=== PATIENT | male | born 1945 | race Caucasian/White ===

== ENCOUNTER → 2023-10-09 06:49 | Outpatient (REF) | payer OTHER, SELFPAY ==
[2023-10-09] MEDS: LEXISCAN 0.400000000000000022 MG IV (09:26)
== END ==
LOC: RCS 06:49
PROVIDERS: ATTENDING PHYSICIAN Internal Medicine Cardiovascular Disease; FAMILY PHYSICIAN Internal Medicine
DX: Z01.810 Encounter for preprocedural cardiovascular examination (principal)
CPT/HCPCS: 78452; 93017; A9500; J2785

== ENCOUNTER 2023-10-23 10:31 | Inpatient (IN) | payer OTHER, SELFPAY ==
--- NOTE | 2023-09-17 10:19 | CM ---
Patient is scheduled for an elective L TKR on 10/23/23. Spoke with patient prior to surgery via telephone. Introduced role of Orthopedic Navigator. Patient reports that he lives with his in a one story home. There is a ramp and one step to enter. He
currently functions independently and uses a cane. He also has a rolling walker, raised toilet seat and shower seat. He has never had VN services. PCP is Dr. Ron Dunlap.
Discussed orthopedic program and post surgical plans. Reviewed anticipated length of stay and that goal is for him to return home at discharge. Also reviewed outpatient PT. Patient is in agreement with tentative plan and will go directly to
outpatient PT at [facility]. His daughter will stay with him and he has two sons close by.
Patient has completed online education.
Plan: Orthopedic Navigator will remain available to assist with the care of patient and will reassess discharge needs after surgery.
[2023-10-03 09:00] VITALS: BMI 37.0
[2023-10-03 10:05] LABS: Hematocrit 39.2 % (39.0-52.0); Hemoglobin 12.3 g/dL (13.0-18.0); Mean Corp Hgb Conc. 31.4 g/dL (33.0-37.0); Mean Corpuscular Hgb 25.5 pg (27.0-31.0); Mean Corpuscular Volume 81.3 fL (80.0-94.0); Mean Platelet Volume 10.2 fL (7.4-10.4); Platelet Count 178 10^3/uL (130-400); Red Blood Cell Count 4.82 10^6/uL (4.70-6.10); Red Cell Dist. Width 14.4 % (11.5-14.5); White Blood Cell Count 5.7 10^3/uL (4.8-10.8)
[2023-10-03 10:40] LABS: ALT (SGPT) 16 U/L (0-50); AST (SGOT) 21 U/L (17-59); Albumin 4.2 g/dl (3.5-5.0); Alkaline Phosphatase 51 U/L (38-126); Blood Urea Nitrogen 19 mg/dl (9-20); Calcium 9.3 mg/dl (8.4-10.2); Carbon Dioxide 27 mmol/L (22-30); Chloride 105 mmol/L (98-107); Estimated Creatinine Clearance 78 ml/min; Glucose 91 mg/dl (70-99); Potassium 4.8 mmol/L (3.5-5.1); Sodium 139 mmol/L (135-145); Total Bilirubin 1.7 mg/dl (0.2-1.3); Total Protein 6.8 g/dl (6.3-8.2); eGFR > 60.00
[2023-10-03 11:59] LABS: Glycohemoglobin (HgbA1c) 6.6 % (4.0-5.6)
[2023-10-06 08:38] VITALS: BMI 37.0
[2023-10-23] VITALS (17 sets, daily range): BP systolic 120–155; BP diastolic 59–100; PULSE 80; O2SAT 95; BMI 37.0
[2023-10-23 10:55] LABS: Glucose - Point of Care 118 mg/dl (70-99)
[2023-10-23] MEDS: NORMOSOL-R 1000 IV ×2 (10:57→13:55)
[2023-10-23] MEDS: CELEBREX 200 MG PO (10:59)
[2023-10-23] MEDS: TYLENOL 650 MG PO ×4 (11:00→23:25)
[2023-10-23 13:47] LABS: Glucose - Point of Care 115 mg/dl (70-99)
[2023-10-23] MEDS: ROXICODONE 5 MG PO ×3 (13:56→22:07)
[2023-10-23] MEDS: TORADOL 15 MG IV ×2 (14:40→20:15)
--- NOTE | 2023-10-23 14:45 | SUR.PHASEI ---
Pts Lantus held per Dr Joseph adams 115, pt has not eaten yet.
--- NOTE | 2023-10-23 14:54 | W.PN.UPDATE ---
Update Note
Progress Note Update
Patient doing well in PACU. VSS. Pulm: nonlabored. LLE: Dressing CDI. NVI distally. Calf soft. aBle to fully extend. Postop xray as expected. ASA for DVT prophylaxis. Plan for discharge home tomorrow with outpatient PT on Friday.
--- NOTE | 2023-10-23 15:40 | PTCARENOTE ---
Patient received from PACU in bed; IVF infusing; Surgical site assessed with DIABETES SPECIALIST, left knee aquacell clean/dry/intact; Bilateral pedal pulses +2; Patient denies N/V at this time; Patient states pain is mild and tolerable; Call swenson within reach;
Bed in lowest position, wheels locked; Assessment ongoing
[2023-10-23] MEDS: REQUIP 4 MG PO (15:43)
[2023-10-23] MEDS: GLUCOPHAGE 1000 MG PO (15:43)
[2023-10-23] MEDS: PROTONIX 40 MG PO (15:43)
[2023-10-23] MEDS: ASPIRIN 325 MG PO (17:11)
[2023-10-23 17:12] LABS: Glucose - Point of Care 183 mg/dl (70-99)
[2023-10-23] MEDS: NOVOLOG FLEXPEN-MODERATE RESISTANCE 1 UNITS SC (17:56)
[2023-10-23] MEDS: BACTROBAN 2% OINTMENT 1 APPLIC NASAL (20:15)
[2023-10-23] MEDS: COLACE 100 MG PO (20:15)
[2023-10-23] MEDS: SENOKOT 17.1999999999999993 MG PO (20:15)
[2023-10-23] MEDS: ANCEF 5 IV (20:15)
[2023-10-23] MEDS: NEURONTIN 600 MG PO (20:15)
[2023-10-23 21:37] LABS: Glucose - Point of Care 172 mg/dl (70-99)
[2023-10-23] MEDS: LIPITOR 40 MG PO (21:40)
[2023-10-23] MEDS: FLOMAX 0.400000000000000022 MG PO (21:40)
[2023-10-23] MEDS: NEURONTIN 300 MG PO (21:40)
[2023-10-24 03:30] VITALS: BP 137/79
[2023-10-24] MEDS: TYLENOL 650 MG PO ×3 (04:10→11:00)
[2023-10-24] MEDS: ANCEF 5 IV ×2 (04:10→11:00)
--- NOTE | 2023-10-24 07:15 | W.PN.ORTHO ---
Today's Communication / Plan
-
Plan for discharge home today with outpatient PT on Friday
Assessment
.
Distal Motor Intact: Yes
Dressing:
Clean, dry and intact.
Assessment:
Doing well s/p L TKR
Plan
.
Surgery / Date: 10/23/2023
DVT Prophylaxis: Aspirin
Activity:
Out of bed.
PT/OT
Discharge Plan: Home w/ Outpatient PT
Subjective
.
.:
Patient resting comfortably. Patient OOB and ambulating this AM
Vital Signs and Labs
.
Vital Signs and Labs:
Lab Results
10/03/23 08:56
10/03/23 08:56
Temp Pulse Resp BP Pulse Ox
96.7 F L 73 18 137/79 97
10/24/23 03:30 10/24/23 03:30 10/24/23 03:30 10/24/23 03:30 10/24/23 03:30
Non-invasive Hgb result: 13.4
Physical Exam
-
Pulm: nonlabored
CV: regular
LLE: NVI distally. Calf soft. Able to fully extend
[2023-10-24 07:24] VITALS: BP 128/75
[2023-10-24] MEDS: NEURONTIN 600 MG PO (07:24)
[2023-10-24] MEDS: ASPIRIN 325 MG PO (07:25)
[2023-10-24] MEDS: GLUCOPHAGE 1000 MG PO (07:25)
[2023-10-24] MEDS: COLACE 100 MG PO (07:25)
[2023-10-24] MEDS: COZAAR 50 MG PO (07:25)
[2023-10-24] MEDS: SENOKOT 17.1999999999999993 MG PO (07:25)
[2023-10-24] MEDS: PROTONIX 40 MG PO (07:25)
[2023-10-24] MEDS: MOBIC 15 MG PO (07:26)
[2023-10-24] MEDS: TORADOL 15 MG IV (07:26)
[2023-10-24] MEDS: TOPROL XL 50 MG PO (07:26)
[2023-10-24] MEDS: BACTROBAN 2% OINTMENT 1 APPLIC NASAL (07:27)
[2023-10-24] MEDS: LANTUS 0.25 UNITS SC (07:31)
[2023-10-24] MEDS: NOVOLOG FLEXPEN-MODERATE RESISTANCE SC (07:31)
[2023-10-24 07:34] LABS: Glucose - Point of Care 141 mg/dl (70-99)
[2023-10-24] MEDS: ROXICODONE 5 MG PO (07:35)
--- NOTE | 2023-10-24 10:27 | SLEEP.APNEA ---
Sleep Apnea Order
-
Patient screened as High Risk for Sleep Apnea on Stop Bang Questionnaire. Patient referred to [facility] for Pre-Study.

Name: LESLIE TURNER
: 1945
Home Phone: Use [employer]PrimaryPhone instead
Cell Phone: [f_Reg Other Phone]
Work Phone:
Address:
City: [place]
State: [place]
Zip: [f_[facility] Zip]
Family Physician: Ron Dunlap
Height 5 ft 11 in
Actual Weight 120.4 kg
Body Mass Index (BMI) 37.0
Ordering Provider: Penny Mayers PA-C
--- NOTE | 2023-10-24 10:30 | W.PN.ORTHO ---
Today's Communication / Plan
-
d/c
Assessment
.
Distal Motor Intact: Yes
Dressing:
Clean, dry and intact.
Plan
.
Surgery / Date: Franky Garcia 10/23/2023
DVT Prophylaxis: Aspirin
Activity:
Out of bed.
PT/OT
Discharge Plan: Home w/ Outpatient PT
Subjective
.
.:
Patient resting comfortably.
Vital Signs and Labs
.
Vital Signs and Labs:
Lab Results
10/03/23 08:56
10/03/23 08:56
Temp Pulse Resp BP Pulse Ox
97.8 F 75 16 128/75 97
10/24/23 07:24 10/24/23 07:26 10/24/23 07:24 10/24/23 07:26 10/24/23 08:00
Non-invasive Hgb result: 13.4
Physical Exam
-
HEENT: No pallor, cyanosis, or jaundice. Throat clear.
NECK: Supple. No JVD.
RESPIRATORY: Lungs clear to auscultation.
CVS: S1, S2 normal. RRR.� No murmur, rub or gallop.
ABDOMEN: Soft, non-tender. No distension. BS+/normal.
EXTREMITIES: strength equal, no calf pain with palpation
DENTAL CERAMIST ASSISTANT: AOx3. No focal deficits. die cut operator grossly intact
[2023-10-24 10:35] VITALS: BP 117/58; PULSE 67; O2SAT 99
--- NOTE | 2023-10-24 10:39 | W.DS.TRANS ---
DC Summary - Compliance Quality Performance Analyst
-
Discharge Instructions:
Sleep Apnea Risk High
Discharge Diagnosis/Procedures L TKA Dr. Garcia 10/23/2023
Diet Diabetic, Carb Controlled
Activity With Walker
Driving Restrictions No driving
Bathing Restrictions OK to Shower
Instructions:
Stand-Alone Forms: Total Hip/Knee Replacement D/C
Changes to Home Medications: Yes
Discharge Medications:
DC Medications w/original date entered in [employer]
aspirin 325 mg tablet 325 mg PO DAILY Blood Clot Prevention/Tx 03/08/12
atorvastatin 40 mg tablet 40 mg PO HS High Cholesterol 03/08/12
diclofenac sodium 50 mg tablet,delayed release 50 mg PO BID Pain 09/30/23
gabapentin 300 mg capsule 600 mg PO BID Neurological Condition 09/30/23
insulin glargine 100 unit/mL (3 mL) subcutaneous pen (Lantus Solostar U-100 Insulin) 20 unit SC 0800 Diabetes 09/30/23
losartan 50 mg tablet 50 mg PO DAILY Blood Pressure 09/30/23
metformin 1,000 mg tablet 1,000 mg PO DAILY Diabetes 09/30/23
metoprolol succinate 50 mg tablet,extended release 24 hr 50 mg PO DAILY Heart Failure 09/30/23
omeprazole 40 mg capsule,delayed release 40 mg PO DAILY Gastrointestinal Issue 09/30/23
ropinirole 4 mg tablet 4 mg PO NOON Neurological Condition 09/30/23
tamsulosin 0.4 mg capsule 0.4 mg PO HS Urinary Issue 09/30/23
mupirocin 2 % topical ointment 1 applic topical BID infection prevention #1 tube 10/03/23
Saccharomyces boulardii 250 mg capsule (Florastor) 250 mg PO BID #1 cap 10/24/23
acetaminophen 325 mg capsule (Tylenol) 650 mg (2 x 325 mg) PO QID #2 caps 10/24/23
cefadroxil 500 mg capsule 500 mg PO BID infection prevention #14 caps 10/24/23
docusate sodium 100 mg capsule (Colace) 100 mg PO BID stool softner #1 cap 10/24/23
magnesium hydroxide 400 mg/5 mL oral suspension (Milk of Magnesia) 30 ml PO HS PRN Constipation #1 mL 10/24/23
meloxicam 15 mg tablet 15 mg PO DAILY anti-inflammatory #14 tabs 10/24/23
oxycodone 5 mg tablet 5 mg PO Q6H PRN 1 tab moderate pain, 2 tabs severe pain #30 tabs 10/24/23
sennosides 8.6 mg tablet (Senokot) 17.2 mg (2 x 8.6 mg) PO BID laxative #2 tabs 10/24/23
Home Medication Changes
cefadroxil 500 mg capsule 500 mg PO BID infection prevention #14 caps 10/24/23�
meloxicam 15 mg tablet 15 mg PO DAILY anti-inflammatory #14 tabs 10/24/23�
oxycodone 5 mg tablet 5 mg PO Q6H PRN 1 tab moderate pain, 2 tabs severe pain #30 tabs 10/24/23�
Pending Results: No
--- NOTE | 2023-10-24 10:49 | CM ---
Addendum entered by JOANNE Licona 10/24/23 12:36:
MEt with dgtr and patient after therapy. REviewed need for 2 week followup with surgeon.
Original Note:
Reviewed chart and held rounds with PT, OT and nursing. Patient admitted as planned for elective L TKR. Met with patient at bedside. Confirmed information previously obtained for assessment. Also discussed discharge plans. The plan is for patient to
return home at discharge. He will have support from his daughter for a few days when he goes home. Patient will go directly to outpatient PT and will go to [facility]. He has an appointment scheduled for Friday, 10/26. Reviewed need to schedule appointment
with PA at Dr. Garcia's office in two weeks for removal of jennifer.
Patient has a rolling walker, cane, raised toilet seat and shower seat.
He will use [facility] pharmacy for discharge prescriptions.
[2023-10-24] MEDS: REQUIP 4 MG PO (11:00)
[2023-10-24 11:08] VITALS: BP 123/78; PULSE 77
[2023-10-24 11:12] VITALS: BP 105/56
== END 2023-10-24 11:50 | disposition home or self-care (01) | DRG 470 ==
LOC: 2 SOUTH 10:31
PROVIDERS: ADMITTING PHYSICIAN Orthopaedic Surgery; FAMILY PHYSICIAN Internal Medicine
PROC: 0SRD0J9 Replacement of Left Knee Joint with Synthetic Substitute, Cemented, Open Approach (ICD-10-PCS; 2023-10-23)
DX: M17.12 Unilateral primary osteoarthritis, left knee (principal); I10 Essential (primary) hypertension; E78.5 Hyperlipidemia, unspecified; E11.9 Type 2 diabetes mellitus without complications; K21.9 Gastro-esophageal reflux disease without esophagitis; G25.81 Restless legs syndrome; N40.0 Benign prostatic hyperplasia without lower urinary tract symptoms; I25.10 Atherosclerotic heart disease of native coronary artery without angina pectoris; I25.5 Ischemic cardiomyopathy; E66.9 Obesity, unspecified; Z68.37 Body mass index [BMI] 37.0-37.9, adult; Z95.1 Presence of aortocoronary bypass graft; Z98.61 Coronary angioplasty status; Z90.49 Acquired absence of other specified parts of digestive tract; Z79.82 Long term (current) use of aspirin; Z79.84 Long term (current) use of oral hypoglycemic drugs; Z87.891 Personal history of nicotine dependence
CPT/HCPCS: 36415; 73560; 80053; 82962; 83036; 85027; 87070; 97110; 97116; 97162; 97165; 97535; C1713; C1776

== ENCOUNTER 2024-05-27 06:00 | Inpatient (IN) | payer OTHER, SELFPAY ==
[2024-05-17 11:28] LABS: Hematocrit 37.7 % (39.0-52.0); Hemoglobin 11.8 g/dL (13.0-18.0); Mean Corp Hgb Conc. 31.3 g/dL (33.0-37.0); Mean Corpuscular Hgb 24.3 pg (27.0-31.0); Mean Corpuscular Volume 77.6 fL (80.0-94.0); Mean Platelet Volume 9.9 fL (7.4-10.4); Platelet Count 194 10^3/uL (130-400); Red Blood Cell Count 4.86 10^6/uL (4.70-6.10); Red Cell Dist. Width 15.1 % (11.5-14.5); White Blood Cell Count 6.6 10^3/uL (4.8-10.8)
[2024-05-17 12:03] LABS: Glycohemoglobin (HgbA1c) 6.2 % (4.0-5.6)
[2024-05-17 12:08] LABS: ALT (SGPT) 13 U/L (0-50); AST (SGOT) 17 U/L (17-59); Alkaline Phosphatase 66 U/L (38-126); Blood Urea Nitrogen 10 mg/dl (9-20); Calcium 8.8 mg/dl (8.4-10.2); Carbon Dioxide 27 mmol/L (22-30); Chloride 100 mmol/L (98-107); Glucose 106 mg/dl (70-99); Sodium 138 mmol/L (135-145); Total Bilirubin 1.7 mg/dl (0.2-1.3); Total Protein 6.9 g/dl (6.3-8.2); eGFR > 60.00
[2024-05-17 12:16] LABS: Potassium 3.8 mmol/L (3.5-5.1)
[2024-05-17 13:42] VITALS: BMI 36.1
[2024-05-20 15:58] VITALS: BMI 36.1
--- NOTE | 2024-05-21 09:22 | VNURNOTE ---
Rec'ed info from Pre Admit testing that patient ordered Extended home PT post-op. He will be Admit Morning of Surgery. Lives in [place] which is unfortunately outside of [facility] service area. CM to follow post-op.
--- NOTE | 2024-05-21 11:12 | VNURNOTE ---
Rec'ed info from Pre Admit testing that patient ordered Extended home PT post-op. He will be Admit Morning of Surgery. Referral placed in [facility]. Liaison will follow up w/ patient once admitted.
[2024-05-27] VITALS (19 sets, daily range): BP systolic 106–152; BP diastolic 45–93; PULSE 89; O2SAT 92; BMI 36.1
[2024-05-27 06:20] LABS: Glucose - Point of Care 131 mg/dl (70-99)
[2024-05-27] MEDS: TYLENOL 650 MG PO ×5 (06:43→23:34)
[2024-05-27] MEDS: CELEBREX 200 MG PO (06:43)
[2024-05-27] MEDS: NORMOSOL-R/PLASMALYTE-A 1000 IV ×2 (06:44→12:53)
--- NOTE | 2024-05-27 09:09 | SUR.PHASEI ---
Report from Franky De La Cruz, pt alert, HOb elevated low fowlers occ dry cough noted pt stated he coughs when On back, oriented x 3 by RN denies c/o, Dr Guardado in
[2024-05-27 09:15] LABS: Glucose - Point of Care 131 mg/dl (70-99)
--- NOTE | 2024-05-27 09:33 | SUR.PHASEI ---
Alert, awake, denies c/o, warm blankets given, awaiting orders and room, mouth care given
--- NOTE | 2024-05-27 10:01 | W.DS.TRANS ---
DC Summary - Engineering Drawings Checker
-
Discharge Instructions:
Sleep Apnea Risk Intermediate
Discharge Diagnosis/Procedures R TKA 05/27/24
Diet Diabetic, Carb Controlled
Activity With Walker
Driving Restrictions No driving
Bathing Restrictions OK to Shower
Instructions:
Stand-Alone Forms: Total Hip/Knee Replacement D/C
Changes to Home Medications: Yes
Discharge Medications:
DC Medications w/original date entered in [employer]
aspirin 325 mg tablet 325 mg PO DAILY Blood Clot Prevention/Tx 03/08/12
atorvastatin 40 mg tablet 40 mg PO HS High Cholesterol 03/08/12
insulin glargine 100 unit/mL (3 mL) subcutaneous pen (Lantus Solostar U-100 Insulin) 20 unit SC 0800 Diabetes 09/30/23
losartan 50 mg tablet 50 mg PO DAILY Blood Pressure 09/30/23
metoprolol succinate 50 mg tablet,extended release 24 hr 50 mg PO DAILY Heart Failure 09/30/23
omeprazole 40 mg capsule,delayed release 40 mg PO DAILY Gastrointestinal Issue 09/30/23
ropinirole 4 mg tablet 4 mg PO NOON Neurological Condition 09/30/23
tamsulosin 0.4 mg capsule 0.4 mg PO HS Urinary Issue 09/30/23
acetaminophen 325 mg capsule (Tylenol) 650 mg (2 x 325 mg) PO QID #2 caps 10/24/23
metformin 1,000 mg tablet 1,000 mg PO DAILY 05/14/24
cefadroxil 500 mg capsule 500 mg PO BID infection prevention #14 caps 05/17/24
gabapentin 300 mg capsule 300 mg PO HS sleep/pain #10 caps 05/17/24
meloxicam 15 mg tablet 15 mg PO DAILY anti-inflammatory #14 tabs 05/17/24
mupirocin 2 % topical ointment 1 applic topical BID infection prevention #1 tube 05/17/24
oxycodone 5 mg tablet 5 mg PO Q6H PRN 1 tab moderate pain, 2 tabs severe pain #30 tabs 05/17/24
Saccharomyces boulardii 250 mg capsule (Florastor) 250 mg PO BID #1 cap 05/27/24
docusate sodium 100 mg capsule (Colace) 100 mg PO BID stool softner #1 cap 05/27/24
magnesium hydroxide 400 mg/5 mL oral suspension (Milk of Magnesia) 30 ml PO HS PRN Constipation #1 mL 05/27/24
sennosides 8.6 mg tablet (Senokot) 17.2 mg (2 x 8.6 mg) PO BID laxative #2 tabs 05/27/24
Home Medication Changes
cefadroxil 500 mg capsule 500 mg PO BID infection prevention #14 caps 05/17/24
gabapentin 300 mg capsule 300 mg PO HS sleep/pain #10 caps 05/17/24
meloxicam 15 mg tablet 15 mg PO DAILY anti-inflammatory #14 tabs 05/17/24
mupirocin 2 % topical ointment 1 applic topical BID infection prevention #1 tube 05/17/24
oxycodone 5 mg tablet 5 mg PO Q6H PRN 1 tab moderate pain, 2 tabs severe pain #30 tabs 05/17/24
Saccharomyces boulardii 250 mg capsule (Florastor) 250 mg PO BID #1 cap 05/27/24
docusate sodium 100 mg capsule (Colace) 100 mg PO BID stool softner #1 cap 05/27/24
magnesium hydroxide 400 mg/5 mL oral suspension (Milk of Magnesia) 30 ml PO HS PRN Constipation #1 mL 05/27/24
sennosides 8.6 mg tablet (Senokot) 17.2 mg (2 x 8.6 mg) PO BID laxative #2 tabs 05/27/24
Pending Results: No
--- NOTE | 2024-05-27 10:05 | SUR.PHASEI ---
Dozing intermit, vss
--- NOTE | 2024-05-27 10:33 | SUR.PHASEI ---
Lightly dozing, pt states, 'I'm getting antsyto leave' reassured, denies pain
[2024-05-27] MEDS: ROXICODONE 5 MG PO ×2 (10:56→17:05)
--- NOTE | 2024-05-27 11:11 | SUR.PHASEI ---
Aler6t awake sitting up in bed, daughter in
--- NOTE | 2024-05-27 11:42 | SUR.PHASEI ---
Daughter to luis, tania, zan water well
[2024-05-27 11:57] LABS: Glucose - Point of Care 149 mg/dl (70-99)
--- NOTE | 2024-05-27 12:03 | SUR.PHASEI ---
Sitting in bed eating, zan well
--- NOTE | 2024-05-27 12:50 | PTCARENOTE ---
Pt arrived to 2S in bed. Full assessment completed. R knee DSG with a scant amount of drainage noted. B/L LE neurovascular assessment WDL. Nasal cannula maintained. Telemetry applied. IVF infusing per order. Pt instructed to ring for assistance with
ambulation, verbalized understanding. Bed locked and in the lowest position, safety maintained. Oriented to room and call swenson, daughter at bedside.
[2024-05-27] MEDS: REQUIP PO (12:53)
[2024-05-27] MEDS: GLUCOPHAGE 1000 MG PO ×2 (12:53→19:52)
[2024-05-27] MEDS: FLOMAX 0.4 MG PO ×2 (13:00→19:52)
--- NOTE | 2024-05-27 15:31 | W.PN.UPDATE ---
Update Note
Progress Note Update
Patient doing well s/p RTKR. VSS. Pulm: nonlabored. CV: regular Abd: benign. RLE: Dressing with small amount of bloody drainage. Able to fully extend. Calf soft. Post op xray as expected. ASA for DVT prophylaxis. Plan for discharge
home tomorrow with Home PT/VN to start.
[2024-05-27] MEDS: ANCEF 5 IV ×2 (17:04→23:34)
[2024-05-27] MEDS: ASPIRIN 325 MG PO (17:05)
[2024-05-27 17:38] LABS: Glucose - Point of Care 175 mg/dl (70-99)
[2024-05-27] MEDS: SENOKOT 17.2 MG PO (19:52)
[2024-05-27] MEDS: COLACE 100 MG PO (19:52)
[2024-05-27] MEDS: BACTROBAN 2% OINTMENT 1 APPLIC NASAL (19:52)
[2024-05-27] MEDS: REQUIP 4 MG PO ×2 (19:55→19:58)
[2024-05-27] MEDS: ULTRAM 50 MG PO (19:56)
[2024-05-27] MEDS: NEURONTIN 300 MG PO (21:21)
[2024-05-27] MEDS: PEPCID 40 MG PO (21:21)
[2024-05-27] MEDS: LIPITOR 40 MG PO (21:21)
[2024-05-27 21:26] LABS: Glucose - Point of Care 142 mg/dl (70-99)
[2024-05-28 02:56] VITALS: BP 141/62
[2024-05-28] MEDS: TYLENOL PO (04:28)
[2024-05-28 05:28] VITALS: BMI 35.6
[2024-05-28] MEDS: ROXICODONE 5 MG PO (06:16)
[2024-05-28 07:03] VITALS: BP 149/63
--- NOTE | 2024-05-28 07:28 | W.PN.ORTHO ---
Today's Communication / Plan
-
Plan for discharge home with home PT and VN
Assessment
.
Distal Motor Intact: Yes
Dressing:
Clean, dry and intact.
Assessment:
Doing well s/p R TKR
Plan
.
Surgery / Date: 05/27/2024 R TKR
DVT Prophylaxis: Aspirin
Activity:
Out of bed.
PT/OT
Discharge Plan: Home w/ VN
Subjective
.
.:
Patient OOB and in a chair
Vital Signs and Labs
.
Vital Signs and Labs:
Lab Results
05/17/24 09:04
05/17/24 09:04
Temp Pulse Resp BP Pulse Ox
97.4 F 76 20 149/63 96
05/28/24 07:03 05/28/24 07:03 05/28/24 07:03 05/28/24 07:03 05/28/24 07:03
Physical Exam
-
Pulm: nonlabored
CV: regular
RLE: Dressing changed due to bloody drainage at inferior aspect of aquacell
[2024-05-28 07:38] LABS: Glucose - Point of Care 116 mg/dl (70-99)
[2024-05-28] MEDS: LANTUS 0.25 UNITS SC (08:13)
[2024-05-28] MEDS: FLOMAX 0.4 MG PO (08:13)
[2024-05-28] MEDS: ULTRAM 50 MG PO (08:13)
[2024-05-28] MEDS: TOPROL XL 50 MG PO (08:13)
[2024-05-28] MEDS: ASPIRIN 325 MG PO (08:13)
[2024-05-28] MEDS: GLUCOPHAGE 1000 MG PO (08:13)
[2024-05-28] MEDS: BACTROBAN 2% OINTMENT 1 APPLIC NASAL (08:14)
[2024-05-28] MEDS: SENOKOT 17.2 MG PO (08:14)
[2024-05-28] MEDS: TYLENOL 650 MG PO (08:14)
[2024-05-28] MEDS: TORADOL 15 MG IV (08:14)
[2024-05-28] MEDS: COLACE 100 MG PO (08:15)
--- NOTE | 2024-05-28 09:11 | W.PN.ORTHO ---
Today's Communication / Plan
-
d/c if stable with therapy
Assessment
.
Distal Motor Intact: Yes
Dressing:
Clean, dry and intact.
Assessment:
Incisional drainage-bandage changed by Dr. Garcia and currently dry-Tranexamic acid x1 dose now -light pressure dress
Plan
.
Surgery / Date: R TKA 05/27/24
DVT Prophylaxis: Aspirin
Activity:
Out of bed.
PT/OT
Discharge Plan: Home w/ VN
Subjective
.
.:
Patient resting comfortably.
Vital Signs and Labs
.
Vital Signs and Labs:
Lab Results
05/17/24 09:04
05/17/24 09:04
Temp Pulse Resp BP Pulse Ox
97.4 F 76 20 149/63 96
05/28/24 07:03 05/28/24 07:03 05/28/24 07:03 05/28/24 07:03 05/28/24 07:03
Physical Exam
-
HEENT: No pallor, cyanosis, or jaundice. Throat clear.
NECK: Supple. No JVD.
RESPIRATORY: Lungs clear to auscultation.
CVS: S1, S2 normal. RRR.� No murmur, rub or gallop.
ABDOMEN: Soft, non-tender. No distension. BS+/normal.
EXTREMITIES: strength equal, no calf pain with palpation
MANAGER PACKAGING: AOx3. No focal deficits. acid cutter grossly intact
--- NOTE | 2024-05-28 09:52 | CM ---
Met with pt and his daughter at bedside
Pt reports he lives alone in a 1 story home with ramp access; 1 step to enter
Independent with ADL's, ambulates using rolling walker or single point cane, does not drive
DME - rolling walker, single point cane, shower chair, shower rail, raised toilet seat, toilet rails
SNF/HH - denies past hx
Has ride at discharge
PCP - Ron Dunlap
Pharm - [facility]
PT/OT - recs HH - does not have transport
Discussed with pt - agreeable to HH - has no preference
[facility] Liaison made aware of referral via TT
Given IMM
Plan - anticipate home with [facility]
--- NOTE | 2024-05-28 10:01 | VNURNOTE ---
Home Health Liaison met with patient and daughter at bedside to discuss [facility] nurse/therapy, visits, schedule and homebound status. Both are agreeable and understand that visits at home will be 2-3 x per week to assess and teach medical management.
[facility] brochure provided with contact information. Patient is aware that [facility] will contact them for start of care in 1-2 days after discharge from .
[facility] referral accepted in [facility].
[2024-05-28] MEDS: CYKLOKAPRON 1300 MG PO (10:41)
[2024-05-28 10:43] VITALS: BP 129/64
== END 2024-05-28 11:25 | disposition home health service (06) | DRG 470 ==
LOC: 2 SOUTH 06:00
PROVIDERS: ADMITTING PHYSICIAN Orthopaedic Surgery; FAMILY PHYSICIAN Internal Medicine; REFERRING PHYSICIAN Internal Medicine Cardiovascular Disease
PROC: 0SRC0J9 Replacement of Right Knee Joint with Synthetic Substitute, Cemented, Open Approach (ICD-10-PCS; 2024-05-27)
DX: M17.11 Unilateral primary osteoarthritis, right knee (principal); Z96.652 Presence of left artificial knee joint; Z68.35 Body mass index [BMI] 35.0-35.9, adult; E66.9 Obesity, unspecified; I10 Essential (primary) hypertension; E78.5 Hyperlipidemia, unspecified; E11.9 Type 2 diabetes mellitus without complications; Z79.4 Long term (current) use of insulin; K21.9 Gastro-esophageal reflux disease without esophagitis; G25.81 Restless legs syndrome; N40.0 Benign prostatic hyperplasia without lower urinary tract symptoms; I25.10 Atherosclerotic heart disease of native coronary artery without angina pectoris; Z98.61 Coronary angioplasty status; Z95.1 Presence of aortocoronary bypass graft; I25.5 Ischemic cardiomyopathy; Z90.49 Acquired absence of other specified parts of digestive tract; Z79.82 Long term (current) use of aspirin; Z79.84 Long term (current) use of oral hypoglycemic drugs; Z87.891 Personal history of nicotine dependence
CPT/HCPCS: 36415; 73560; 80053; 82962; 83036; 85027; 86850; 86900; 86901; 87070; 97110; 97116; 97162; 97166; 97530; 97535; C1713; C1776